=== PATIENT | female | born 1950 | race Caucasian/White ===

== ENCOUNTER 2020-08-13 18:48 | Emergency (ER) | payer MEDICARE ==
[2020-08-13 19:58] VITALS: O2SAT 96
--- NOTE | 2020-08-13 20:11 | ERPHSYRPT ---
- History of Present Illness Time Seen by Provider: 08/13/20 19:05 Source: patient Exam Limitations: no limitations Patient Subjective Stated Complaint: Pt slipped on a wet area at home and landed on the water bucket injuring herself under her right breast Triage Nursing Assessment: Pt brought to the ER by her , hypertensive, rates pain 8/10, pain to right ribs below breast, denies any other injuries denies LOC, no visible bruising noted, pt breathing normal, doesn't appear to be in any distress Physician History: There is a 69-year-old female who was using a riding lawn more to move some lawn supplies when she got to where she needed to take them off she stepped on the mower deck and it was wet and she slipped and she fell landing on a plastic bucket which broke. She suffered a contusion to her right chest just below the breast it is increased pain with movement or breathing. She did take some tramadol for pain which did not really help that much she denies any other injury or pain. Occurred: just prior to arrival Reason for Fall: slipped Injuries/Pain Location: chest Loss of Consciousness: no loss of consciousness Quality: stabbing, throbbing Severity of Pain-Max: severe Severity of Pain-Current: severe Modifying Factors: Improves With: movement Associated Symptoms (Fall): chest pain Allergies/Adverse Reactions: erythromycin base Allergy (Verified 08/13/20 19:02) Home Medications: Atorvastatin Calcium 20 mg PO DAILY 08/13/20 [History] Cetirizine HCl [Zyrtec] 10 mg PO DAILY 08/13/20 [History] Cholecalciferol (Vitamin D3) [Vitamin D3] 1,000 unit PO DAILY 08/13/20 [History] Famotidine 20 mg [Pepcid 20 MG] 20 mg PO DAILY 08/13/20 [History] Levothyroxine Sodium 100 Mcg [Synthroid 100 Mcg] 100 mcg PO DAILY 08/13/20 [History] Melatonin 5 mg PO DAILY 08/13/20 [History] Meloxicam [Mobic] 15 mg PO DAILY 08/13/20 [History] Metoprolol Succinate 25 mg PO DAILY 08/13/20 [History] Montelukast Sodium 10 mg [Singulair 10 MG] 10 mg PO DAILY 08/13/20 [History] Omeprazole 20 mg PO DAILY 08/13/20 [History] Travel Risk - International Travel Have you traveled outside of the country in past 3 weeks: No - Coronavirus Screening Are you exhibiting any of the following symptoms?: No Close contact with a COVID-19 positive Pt in past 14-21 Days: No - Vaccine Status Have you recieved a Covid-19 vaccination: Yes [employer]: Moderna - Vaccination Dates Date of 2cond Vaccination (if applicable): unknown - Review of Systems Constitutional: No Fever, No Chills Eyes: No Symptoms Ears, Nose, & Throat: No Symptoms Respiratory: No Cough, No Dyspnea Cardiac: No Chest Pain, No Edema, No Syncope Abdominal/Gastrointestinal: No Abdominal Pain, No Nausea, No Vomiting, No Diarrhea Genitourinary Symptoms: No Dysuria Musculoskeletal: No Back Pain, No Neck Pain Skin: No Rash Neurological: No Dizziness, No Focal Weakness, No Sensory Changes Psychological: No Symptoms Endocrine: No Symptoms All Other Systems: Reviewed and Negative - Past Medical History Pertinent Past Medical History: Yes Neurological History: No Pertinent History Cardiac History: Arrhythmia Respiratory History: Asthma Endocrine Medical History: Hypothyroidism Musculoskeletal History: Degenerative Disk Disease, Osteoarthritis - Past Surgical History Past Surgical History: Yes Other Surgical History: 2 plates and 6 screws in neck, finger surgery - Social History Smoking Status: Never smoker Exposure to second hand smoke: No Drug Use: none Patient Lives Alone: No - Female History Hx Now: No - Nursing Vital Signs Nursing Vital Signs: Initial Vital Signs Temperature 98.0 F 08/13/20 18:54 Pulse Rate 67 08/13/20 18:54 Blood Pressure 141/89 08/13/20 18:54 O2 Sat by Pulse Oximetry 97 08/13/20 18:54 Pain Scale Pain Intensity 8 - [place] Coma Score Best Eye Response ([place]): (4) open spontaneously Best Verbal Response ([place]): (5) oriented Best Motor Response ([place]): (6) obeys commands [place] Total: 15 - Physical Exam General Appearance: mild distress Head Injury: no evidence of injury Eye Exam: PERRL/EOMI ENT Exam: airway nml Neck Exam: normal inspection, No tenderness Respiratory/Chest Exam: chest tenderness (Right anterolateral rib tenderness about ribs 6 on the right), normal breath sounds Cardiovascular Exam: normal heart sounds, regular rate/rhythm Gastrointestinal Exam: soft, normal bowel sounds Rectal Exam: deferred Back Exam: normal inspection, normal range of motion Extremity Exam: normal inspection, normal range of motion Neurologic Exam: alert, oriented x 3, cooperative, No motor deficits, No sensory deficit Skin Exam: normal color, warm, dry SpO2 Interpretation: normal SpO2: 96 O2 Delivery: Room Air - Course Nursing assessment & vital signs reviewed: Yes - Radiology Exams Ribs X-ray Interpretation: Interpreted by me, Negative Ordered Tests: Active Orders 24 hr Category Date Time Status RIBS UNILATERAL Stat Exams 08/13/20 19:08 Ordered - Progress Progress: improved - Departure Departure Disposition: Home Clinical Impression: Chest wall contusion Condition: Stable Critical Care Time: No Referrals: THALIA CONNORS [Primary Care Provider] - Instructions: Contusion (DC) Prescriptions: Oxycodone HCl/Acetaminophen [Percocet 5-325 mg Tablet] 1 each PO Q6H PRN PRN 3 Days #12 tablet MDD 4 PRN Reason: Pain
[2020-08-13] MEDS ORDERED: PERCOCET TABLET 5/325MG PO SCH (20:30)
[2020-08-13] MEDS ORDERED: PERCOCET TABLET 5/325MG ONE (20:39)
[2020-08-13 20:51] VITALS: BP 126/78; PULSE 64
--- NOTE | 2020-08-14 07:39 | XRAY ---
Indication: Anterior chest wall pain following injury/fall. Comparison: None 2 view right ribs demonstrates minimal/mild degenerative changes throughout the spine, lower cervical fusion hardware, and hilar/pulmonary calcified granulomas. No other bony, articular, or soft tissue abnormalities.
== END 2020-08-13 20:49 | disposition home or self-care (01) ==
LOC: ED 18:48
DX: S20.219A Contusion of unspecified front wall of thorax, initial encounter (principal); W01.0XXA Fall on same level from slipping, tripping and stumbling without subsequent striking against object, initial encounter; Y93.89 Activity, other specified; Y92.89 Other specified places as the place of occurrence of the external cause; Z79.899 Other long term (current) drug therapy
CPT/HCPCS: 71100; 99283; A9270-GY

== ENCOUNTER 2022-07-25 14:28 | Day surgery (SDC) | payer MEDICARE ==
[2022-07-25] MEDS ORDERED: Depo-Medrol 40 MG/ML IM ONE (14:29)
[2022-07-25] MEDS ORDERED: LIDOCAINE HCL 2% 100 MG/5 ML IJ ONE (14:29)
[2022-07-25] MEDS ORDERED: DIPRIVAN 200 MG/20 ML IV ONE (15:24)
[2022-07-25] MEDS ORDERED: Lactated Ringers 1,000 ML IV ONE (16:51)
--- NOTE | 2022-07-25 18:10 | XRAY ---
Indication: Bilateral L4-S1 MBB. Intraoperative fluoroscopy provided for 15 seconds. Single digital spot image submitted for interpretation demonstrates posterior needle tips projecting over the expected left and right L4-S1 nerve roots. Correlate with intraoperative findings/report.
--- NOTE | 2022-07-26 17:14 | XRAY ---
15 seconds of fluoroscopy was used in surgery for a bilateral L4-S1 MBB.
== END 2022-07-25 16:00 | disposition home or self-care (01) ==
LOC: SDC-PAIN 14:28
PROVIDERS: ATTEND Psychiatry & Neurology Pain Medicine
DX: M47.816 Spondylosis without myelopathy or radiculopathy, lumbar region (principal); Z79.899 Other long term (current) drug therapy
CPT/HCPCS: 64493; 64494; 72020; 77002; J1030; J2704

== ENCOUNTER 2022-09-05 13:03 | Day surgery (SDC) | payer MEDICARE ==
[2022-09-05] MEDS ORDERED: Depo-Medrol 40 MG/ML IM ONE (13:04)
[2022-09-05] MEDS ORDERED: BUPIVACAINE 0.5% VIAL IJ ONE (13:04)
[2022-09-05] MEDS ORDERED: DIPRIVAN 200 MG/20 ML IV ONE (14:49)
[2022-09-05] MEDS ORDERED: Lactated Ringers 1,000 ML IV ONE (16:18)
--- NOTE | 2022-09-05 16:27 | XRAY ---
9 seconds of fluoroscopy was used in surgery for a bilateral L4-S1 MBB.
--- NOTE | 2022-09-05 16:31 | XRAY ---
Indication: Bilateral L4-S1 MBB. Intraoperative fluoroscopy provided for 9 seconds. Single digital spot image submitted for interpretation demonstrates posterior needle tips projecting over the expected left and right L4-S1 nerve roots. Correlate with intraoperative findings/report.
== END 2022-09-05 15:15 | disposition home or self-care (01) ==
LOC: SDC-PAIN 13:03
PROVIDERS: ATTEND Psychiatry & Neurology Pain Medicine
DX: M47.816 Spondylosis without myelopathy or radiculopathy, lumbar region (principal); Z79.899 Other long term (current) drug therapy
CPT/HCPCS: 64493; 64494; 72020; 77002; J1030; J2704

== ENCOUNTER 2022-09-26 10:25 | Day surgery (SDC) | payer MEDICARE ==
[2022-09-26] MEDS ORDERED: LIDOCAINE HCL 1% 50 MG/5 ML VL PF IJ ONE (10:26)
[2022-09-26] MEDS ORDERED: Depo-Medrol 40 MG/ML IM ONE (10:26)
[2022-09-26] MEDS ORDERED: BUPIVACAINE 0.5% VIAL IJ ONE (10:26)
[2022-09-26] MEDS ORDERED: DIPRIVAN 200 MG/20 ML IV ONE (12:24)
--- NOTE | 2022-09-26 13:47 | XRAY ---
Indication: Right L4-S1 RFA. Intraoperative fluoroscopy provided for 24 seconds. 3 digital spot image submitted for interpretation demonstrates posterior needle tips projecting over the expected right L4-S1 nerve roots. Correlate with intraoperative findings/report.
[2022-09-26] MEDS ORDERED: Lactated Ringers 1,000 ML IV ONE (14:34)
--- NOTE | 2022-09-26 15:14 | XRAY ---
24 seconds of fluoroscopy was used in surgery for a right L4-S1 RFA.
== END 2022-09-26 12:53 | disposition home or self-care (01) ==
LOC: SDC-PAIN 10:25
PROVIDERS: ATTEND Psychiatry & Neurology Pain Medicine
DX: M47.816 Spondylosis without myelopathy or radiculopathy, lumbar region (principal)
CPT/HCPCS: 64635; 64636; 72100; 77002; J1030; J2001; J2704

== ENCOUNTER 2022-10-03 12:04 | Day surgery (SDC) | payer MEDICARE ==
[2022-10-03] MEDS ORDERED: BUPIVACAINE 0.5% VIAL IJ ONE (12:05)
[2022-10-03] MEDS ORDERED: Depo-Medrol 40 MG/ML IM ONE (12:05)
[2022-10-03] MEDS ORDERED: LIDOCAINE HCL 1% 50 MG/5 ML VL PF IJ ONE (12:05)
[2022-10-03] MEDS ORDERED: Lactated Ringers 1,000 ML IV ONE (14:43)
--- NOTE | 2022-10-03 18:35 | XRAY ---
Indication: Left L4-S1 RFA. Intraoperative fluoroscopy provided for 18 seconds. 4 digital spot image submitted for interpretation demonstrates posterior needle tips projecting over the expected left L4-S1 nerve roots. Correlate with intraoperative findings/report.
--- NOTE | 2022-10-03 18:57 | XRAY ---
18 seconds of fluoroscopy was used in surgery for a left L4-S1 RFA.
== END 2022-10-03 14:30 | disposition home or self-care (01) ==
LOC: SDC-PAIN 12:04
PROVIDERS: ATTEND Psychiatry & Neurology Pain Medicine
DX: M47.816 Spondylosis without myelopathy or radiculopathy, lumbar region (principal); Z79.899 Other long term (current) drug therapy
CPT/HCPCS: 64635; 64636; 72100; 77002; 99100; J1030; J2001

== ENCOUNTER 2023-07-17 13:33 | Day surgery (SDC) | payer MEDICARE ==
[2023-07-17] MEDS ORDERED: Sodium Chloride 0.9(Preservative Free) 10 ML IJ ONE (13:34)
[2023-07-17] MEDS ORDERED: Decadron 4 MG INJ IV ONE (13:34)
[2023-07-17] MEDS ORDERED: DIPRIVAN 200 MG/20 ML IV ONE (16:06)
--- NOTE | 2023-07-17 17:06 | XRAY ---
Indication: Right L4-S1 transforaminal GONZÁLEZ. Intraoperative fluoroscopy provided for 44 seconds. 5 digital spot image submitted for interpretation demonstrates posterior needle tips projecting over the expected right L4 and L5 nerve roots. Small amount of contrast injected for needle tip placement. Correlate with intraoperative findings/report.
[2023-07-17] MEDS ORDERED: Lactated Ringers 1,000 ML IV ONE (17:25)
--- NOTE | 2023-07-18 08:55 | XRAY ---
44 seconds of fluoroscopy was used in surgery for a right L4-S1 transforaminal GONZÁLEZ.
== END 2023-07-17 17:00 | disposition home or self-care (01) ==
LOC: SDC-PAIN 13:33
PROVIDERS: ATTEND Psychiatry & Neurology Pain Medicine
DX: M54.16 Radiculopathy, lumbar region (principal)
CPT/HCPCS: 64483; 64484; 72100; 77003; J1100; J2704; Q9966